=== PATIENT | female | born 1960 | race Caucasian/White ===

== ENCOUNTER → 2016-09-12 | Outpatient (CLI) | payer OTHER, BC ==
[~2016-09-12] MED LIST: ONDA4TAB11 PO
--- NOTE | 2016-09-12 18:25 | Diagnostic Imaging Report ---
Bilateral screening mammogram The current study was also evaluated with a Computer Aided Detection (CAD) system. Indication: Screening. No current complaints stated on the questionnaire. COMPARISON: 11/02/15. FINDINGS: The breasts are composed of scattered fibroglandular densities. There are occasional benign-appearing calcifications. Allowing for technique and positional differences, no suspicious change is seen. IMPRESSION: No significant change. ACR BI-RADS Category 2: Benign findings. Result letter will be mailed to the patient. Note: At least 10% of breast cancer is not imaged by mammography. Dictated by: Dictated on workstation # [id number]
== END ==
LOC: RAD 12:54
PROVIDERS: ATTEND Obstetrics & Gynecology
DX: Z12.31 Encounter for screening mammogram for malignant neoplasm of breast (principal)
CPT/HCPCS: 77067

== ENCOUNTER 2016-11-17 10:04 | Emergency (ER) | payer OTHER, BC ==
[~2016-11-17] VITALS: Ht 170.2 cm; Wt 93.0 kg
[2016-11-17] MEDS ORDERED: NS IV 1000 ML 1,000 ML IV ONE (10:22)
--- NOTE | 2016-11-17 10:33 | ED General ---
General Chief Complaint: Abdominal/GI Problems Stated Complaint: NAUSEA/DIARRHEA LOW BP Nursing Triage Note: PT CO OF FLU TYPE SX WEAKNESS, N/V SINCE LAST SUNDAY. PT HAS BEEN ON ZITROMAX SINCE SUNDAY Nursing Sepsis Screen: No Definite Risk Source of Information: Patient Exam Limitations: No Limitations History of Present Illness Time Seen by Provider: 10:16 Initial Comments Here with report of upper respiratory type symptoms including cough that have been going on for about a week and have improved some. She is now reporting nausea and weakness. She took her blood pressure today at work here and noted that she had a blood pressure in the 80s. She felt very weak at the time. She does report dizziness on standing. On arrival here she has normal to high blood pressure. Denies diarrhea. Denies shortness of breath. States that she has been drinking okay but not eating well because she does not have an appetite currently. Timing/Duration: 1 Week, Getting Worse Severity: Moderate Associated Systoms: Cough, No Fever/Chills, Nausea/Vomiting, No Shortness of Air, Weakness Allergies and Home Medications Allergies Coded Allergies: No Known Drug Allergies (Verified , 01/18/09) Home Medications Ondansetron 4 Mg Tab.rapdis, 4 MG PO Q6H PRN for NAUSEA/VOMITING, #8 Ref 0 Prescribed by: JANAE MCGREGOR on 11/17/16 1158 Constitutional: see HPI, No chills, No fever Respiratory: cough, No short of breath Cardiovascular: see HPI, No chest pain, No edema (still all the water comes down and there is), No palpitations, syncope (near syncope) Gastrointestinal: No abdominal pain, No diarrhea, nausea, No vomiting Genitourinary: no symptoms reported Musculoskeletal: no symptoms reported, No back pain, No muscle pain Skin: No lesions, No rash Psychiatric/Neurological: Denies Depressed, Denies Headache, Weakness Hematologic/Lymphatic: No Symptoms Reported All Other Systems Reviewed Negative Unless Noted: Yes Past Fjxnqio-Ztlcch-Rtnqlq Hx Patient Social History Alcohol Use: Denies Use Recreational Drug Use: No Smoking Status: Never a Smoker Recent Foreign Travel: No Contact w/Someone Who Travel: No Recent Infectious Disease Expo: No Recent Hopitalizations: No Surgeries HX Surgeries: Yes () Surgeries: Adenoidectomy, Appendectomy, Hysterectomy, Tonsillectomy Respiratory Hx Respiratory Disorders: No Cardiovascular Hx Cardiac Disorders: No Neurological Hx Neurological Disorders: No Reproductive System Hx Reproductive Disorders: Yes [employer] History: Hysterectomy Genitourinary Hx Genitourinary Disorders: No Gastrointestinal Hx Gastrointestinal Disorders: No Musculoskeletal Hx Musculoskeletal Disorders: No Endocrine Hx Endocrine Disorders: Yes Endocrine Disorders: Hypothyroidsim HEENT HX ENT Disorders: No Psychosocial Hx Psychiatric Problems: No Blood Transfusions Hx Blood Disorders: No Reviewed Nursing Assessment Reviewed/Agree w Nursing PMH: Yes Family Medical History Significant Family History: No Pertinent Family Hx Physical Exam Vital Signs Vital Sign - Last 12Hours 11/17/16 10:10 Temp 97.3 Pulse 80 Resp 18 B/P (MAP) 168/100 Pulse Ox 100 Capillary Refill : Less Than 3 Seconds General Appearance: No Apparent Distress, WD/WN HEENT: PERRL/EOMI, Pharynx Normal Neck: Non Tender, Supple Respiratory: Lungs Clear, Normal Breath Sounds Cardiovascular: Regular Rate, Rhythm, No Murmur Gastrointestinal: Non Tender, Soft Back: Normal Inspection, No CVA Tenderness, No Vertebral Tenderness Extremity: Non Tender, No Calf Tenderness Neurologic/Psychiatric: Alert, Oriented x3 Skin: Normal Color, Warm/Dry Progress/Results/Core Measures Results/Orders Lab Results Laboratory Tests Test 11/17/16 10:22 11/17/16 11:00 Range/Units White Blood Count 6.9 4.3-11.0 10^3/uL Red Blood Count 4.67 4.35-5.85 10^6/uL Hemoglobin 14.0 11.5-16.0 G/DL Hematocrit 42 35-52 % Mean Corpuscular Volume 89 80-99 FL Mean Corpuscular Hemoglobin 30 25-34 PG Mean Corpuscular Hemoglobin Concent 34 32-36 G/DL Red Cell Distribution Width 13.0 10.0-14.5 % Platelet Count 228 130-400 10^3/uL Mean Platelet Volume 9.5 7.4-10.4 FL Neutrophils (%) (Auto) 51 42-75 % Lymphocytes (%) (Auto) 41 12-44 % Monocytes (%) (Auto) 7 0-12 % Eosinophils (%) (Auto) 1 0-10 % Basophils (%) (Auto) 0 0-10 % Neutrophils # (Auto) 3.5 1.8-7.8 X 10^3 Lymphocytes # (Auto) 2.8 1.0-4.0 X 10^3 Monocytes # (Auto) 0.5 0.0-1.0 X 10^3 Eosinophils # (Auto) 0.1 0.0-0.3 10^3/uL Basophils # (Auto) 0.0 0.0-0.1 10^3/uL Sodium Level 139 135-145 MMOL/L Potassium Level 3.4 L 3.6-5.0 MMOL/L Chloride Level 103 98-107 MMOL/L Carbon Dioxide Level 24 21-32 MMOL/L Anion Gap 12 5-14 MMOL/L Blood Urea Nitrogen 15 7-18 MG/DL Creatinine 0.76 0.60-1.30 MG/DL Estimat Glomerular Filtration Rate > 60 BUN/Creatinine Ratio 20 Glucose Level 123 H 70-105 MG/DL Calcium Level 8.7 8.5-10.1 MG/DL Magnesium Level 1.8 1.8-2.4 MG/DL Total Bilirubin 0.6 0.1-1.0 MG/DL Aspartate Amino Transf (AST/SGOT) 22 5-34 U/L Alanine Aminotransferase (ALT/SGPT) 22 0-55 U/L Alkaline Phosphatase 81 40-136 U/L C-Reactive Protein High Sensitivity 0.32 0.00-0.50 MG/DL Total Protein 6.7 6.4-8.2 G/DL Albumin 3.9 3.2-4.5 G/DL Urine Color YELLOW Urine Clarity CLEAR Urine pH 7 5-9 Urine Specific [place] 1.005 L 1.016-1.022 Urine Protein NEGATIVE NEGATIVE Urine Glucose (UA) NEGATIVE NEGATIVE Urine Ketones NEGATIVE NEGATIVE Urine Nitrite NEGATIVE NEGATIVE Urine Bilirubin NEGATIVE NEGATIVE Urine Urobilinogen NORMAL NORMAL MG/DL Urine Leukocyte Esterase NEGATIVE NEGATIVE Urine RBC (Auto) NEGATIVE NEGATIVE Urine RBC NONE /HPF Urine WBC NONE /HPF Urine Squamous Epithelial Cells 5-10 /HPF Urine Crystals NONE /LPF Urine Bacteria NEGATIVE /HPF Urine Casts NONE /LPF Urine Mucus NEGATIVE /LPF Urine Culture Indicated NO My Orders Orders - JANAE MCGREGOR MD Saline Lock/Iv-Start (11/17/16 10:22) Ns Iv 1000 Ml (Sodium Chloride 0.9%) (11/17/16 10:22) Cbc With Automated Diff (11/17/16 10:22) Comprehensive Metabolic Panel (11/17/16 10:22) Hs C Reactive Protein (11/17/16 10:22) Magnesium (11/17/16 10:22) Ua Culture If Indicated (11/17/16 10:22) Chest Pa/Lat (2 View) (11/17/16 10:22) Ekg Tracing (11/17/16 10:22) Monitor-Rhythm Ecg Trace Only (11/17/16 10:22) Ondansetron Injection (Zofran Injectio (11/17/16 11:45) Famotidine Injection (Pepcid Injection) (11/17/16 11:42) Ondansetron Injection (Zofran Injectio (11/17/16 11:39) Famotidine Injection (Pepcid Injection) (11/17/16 11:39) Medications Given in ED Current Medications Medications Dose Ordered Sig/Kim Route Start Time Stop Time Status Last Admin Dose Admin Ondansetron HCl 4 mg ONCE ONCE IVP 11/17/16 11:45 11/17/16 11:46 DC 11/17/16 11:46 4 MG Sodium Chloride 1,000 ml @ 0 mls/hr Q0M ONCE IV 11/17/16 10:22 11/17/16 10:25 DC 11/17/16 10:38 999 MLS/HR Vital Signs/I&O Vital Sign - Last 12Hours 11/17/16 10:10 Temp 97.3 Pulse 80 Resp 18 B/P (MAP) 168/100 Pulse Ox 100 Blood Pressure Mean: 122 Progress Note : Progress Note Seen and evaluated. IV, labs, EKG, chest x-ray, UA, normal saline 1 L bolus ordered. Monitor patient. 1130: Improved but still feels nauseated. She had declined nausea medicine earlier but has accepted now. Pepcid 20 mg IV and Zofran 4 mg IV given. Monitor patient. 1230: Much improved. Not dizzy now and nausea resolved. Discharged home with return precautions. Patient verbalize understanding instructions and agreement with plan. ECG Initial ECG Impression Date: Nov 17, 2016 Initial ECG Impression Time: 10:28 Initial ECG Rate: 76 Initial ECG Rhythm: Normal Sinus Comment Sinus rhythm with normal axis. No evidence of ST elevation [place]. No previous available for comparison. Interpreted by me. Departure Impression Impression: Primary Impression: Nausea alone Additional Impression: Dehydration Disposition: 01 HOME, SELF-CARE Condition: Improved Departure-Patient Inst. Decision time for Depature: 11:56 Referrals: HOPE ORTIZ DO (PCP/Family) Primary Care Physician Patient Instructions: Dehydration, Adult (DC), Nausea and Vomiting, Adult Add. Discharge Instructions: All discharge instructions reviewed with patient and/or family. Voiced understanding. Take medications as directed. Clear liquid diet for 24 hours and then advance as tolerated. Drink plenty of fluids but taken small sips frequently. Follow- up with your Dr. in a few days for recheck. Return for worse pain, fever, vomiting, weakness, breathing problems or other concerns as needed. Scripts Ondansetron (Ondansetron Odt) 4 Mg Tab.rapdis 4 MG PO Q6H Y for NAUSEA/VOMITING, #8 TAB 0 Refills Prov: JANAE MCGREGOR MD 11/17/16 JANAE MCGREGOR MD Nov 17, 2016 10:33
[2016-11-17 10:39] LABS: BASOPHILS % (AUTO) 0 % (0-10); EOSINOPHILS # (AUTO) 0.1 10^3/uL (0.0-0.3); EOSINOPHILS % (AUTO) 1 % (0-10); LYMPHOCYTES # (AUTO) 2.8 X 10^3 (1.0-4.0); LYMPHOCYTES % (AUTO) 41 % (12-44); MEAN CORPUSCULAR HEMOGLOBIN 30 PG (25-34); MEAN CORPUSCULAR HGB CONC 34 G/DL (32-36); MEAN CORPUSCULAR VOLUME 89 FL (80-99); MEAN PLATELET VOLUME 9.5 FL (7.4-10.4); MONOCYTES # (AUTO) 0.5 X 10^3 (0.0-1.0); MONOCYTES % (AUTO) 7 % (0-12); NEUTROPHILS # (AUTO) 3.5 X 10^3 (1.8-7.8); NEUTROPHILS % (AUTO) 51 % (42-75); PLATELET COUNT 228 10^3/uL (130-400); RED BLOOD COUNT 4.67 10^6/uL (4.35-5.85); WHITE BLOOD COUNT 6.9 10^3/uL (4.3-11.0)
--- NOTE | 2016-11-17 11:01 | Diagnostic Imaging Report ---
PA and lateral views of the chest Indication: Nausea. Weakness. Cough. Findings: The lungs are clear. The heart size is normal. There is no effusion or pneumothorax The mediastinum and julinana appear unremarkable. Impression: Unremarkable study. Dictated by: Dictated on workstation # [id number]
[2016-11-17 11:03] LABS: ALANINE AMINOTRANSFERASE 22 U/L (0-55); ALBUMIN 3.9 G/DL (3.2-4.5); ANION GAP 12 MMOL/L (5-14); ASPARTATE AMINO TRANSFERASE 22 U/L (5-34); BILIRUBIN,TOTAL 0.6 MG/DL (0.1-1.0); BLOOD UREA NITROGEN 15 MG/DL (7-18); BUN/CREATININE RATIO 20; CALCIUM 8.7 MG/DL (8.5-10.1); CARBON DIOXIDE 24 MMOL/L (21-32); CHLORIDE 103 MMOL/L (98-107); CREATININE SERUM 0.76 MG/DL (0.60-1.30); GFR ESTIMATED > 60; GLUCOSE 123 MG/DL (70-105); MAGNESIUM 1.8 MG/DL (1.8-2.4); POTASSIUM 3.4 MMOL/L (3.6-5.0); SODIUM 139 MMOL/L (135-145); TOTAL PROTEIN 6.7 G/DL (6.4-8.2); hs C REACTIVE PROTEIN 0.32 MG/DL (0.00-0.50)
[2016-11-17 11:13] LABS: BILIRUBIN,URINE NEGATIVE (NEGATIVE); KETONES,URINE NEGATIVE (NEGATIVE); LEUKOCYTE ESTERASE ,URINE NEGATIVE (NEGATIVE); NITRITE,URINE NEGATIVE (NEGATIVE); PH,URINE 7 (5-9); PROTEIN,URINE NEGATIVE (NEGATIVE); UROBILINOGEN,URINE NORMAL (NORMAL)
[2016-11-17] MEDS ORDERED: ONDANSETRON 4 MG/2 ML (SDV) Z0FRAN ONE (11:39)
[2016-11-17] MEDS ORDERED: FAMOTIDINE 20MG/2ML IV (PEPCID) ONE (11:39)
[2016-11-17] MEDS ORDERED: FAMOTIDINE 20MG/2ML IV (PEPCID) IV STA (11:42)
[2016-11-17] MEDS ORDERED: ONDANSETRON 4 MG/2 ML (SDV) Z0FRAN IVP ONE (11:45)
[2016-11-17] MEDS ORDERED: ONDA4TAB11 PO (11:58)
[2016-11-17 12:35] VITALS: BP 111/65
== END 2016-11-17 12:36 | disposition home or self-care (01) ==
LOC: EDUNIT# 10:04 → ER 10:06
DX: R11.0 Nausea (principal); E86.0 Dehydration
CPT/HCPCS: 36415; 71020; 80053; 81000; 83735; 85025; 86141; 93041; 96361; 96374; 96375

== ENCOUNTER → 2017-01-03 | Outpatient (CLI) | payer OTHER, BC ==
[2017-01-03 07:52] LABS: BASOPHILS % (AUTO) 1 % (0-10); EOSINOPHILS # (AUTO) 0.1 10^3/uL (0.0-0.3); EOSINOPHILS % (AUTO) 3 % (0-10); LYMPHOCYTES # (AUTO) 1.9 X 10^3 (1.0-4.0); LYMPHOCYTES % (AUTO) 39 % (12-44); MEAN CORPUSCULAR HEMOGLOBIN 30 PG (25-34); MEAN CORPUSCULAR HGB CONC 33 G/DL (32-36); MEAN CORPUSCULAR VOLUME 92 FL (80-99); MEAN PLATELET VOLUME 9.3 FL (7.4-10.4); MONOCYTES # (AUTO) 0.3 X 10^3 (0.0-1.0); MONOCYTES % (AUTO) 7 % (0-12); NEUTROPHILS # (AUTO) 2.5 X 10^3 (1.8-7.8); NEUTROPHILS % (AUTO) 50 % (42-75); PLATELET COUNT 248 10^3/uL (130-400); RED BLOOD COUNT 4.42 10^6/uL (4.35-5.85); RED CELL DISTRIBUTION WIDTH 13.1 % (10.0-14.5); WHITE BLOOD COUNT 4.9 10^3/uL (4.3-11.0)
[2017-01-03 08:16] LABS: ALANINE AMINOTRANSFERASE 14 U/L (0-55); ALBUMIN 3.8 G/DL (3.2-4.5); ANION GAP 8 MMOL/L (5-14); ASPARTATE AMINO TRANSFERASE 18 U/L (5-34); BILIRUBIN,TOTAL 0.4 MG/DL (0.1-1.0); BLOOD UREA NITROGEN 16 MG/DL (7-18); BUN/CREATININE RATIO 22; CALCIUM 9.3 MG/DL (8.5-10.1); CARBON DIOXIDE 27 MMOL/L (21-32); CHLORIDE 104 MMOL/L (98-107); CHOLESTEROL 233 MG/DL (< 200); CREATININE SERUM 0.73 MG/DL (0.60-1.30); DIRECT LDL 133 MG/DL (1-129); GFR ESTIMATED > 60; GLUCOSE 88 MG/DL (70-105); POTASSIUM 3.9 MMOL/L (3.6-5.0); SODIUM 139 MMOL/L (135-145); TOTAL PROTEIN 6.6 G/DL (6.4-8.2); TRIGLYCERIDES 168 MG/DL (<150); VLDL CHOLESTEROL 34 MG/DL (5-40)
[2017-01-03 08:37] LABS: THYROID STIMULATING HORMONE 0.75 UIU/ML (0.35-4.94)
== END ==
LOC: LAB 07:40
PROVIDERS: ATTEND Nurse Practitioner
DX: Z00.00 Encounter for general adult medical examination without abnormal findings (principal); E03.9 Hypothyroidism, unspecified
CPT/HCPCS: 36415; 80053; 80061; 84439; 84443; 85025

== ENCOUNTER → 2017-09-17 | Outpatient (CLI) | payer OTHER, BC ==
--- NOTE | 2017-09-17 20:37 | Diagnostic Imaging Report ---
INDICATION: Routine screening. Comparison is made with prior exam from 09/12/2016 and 11/02/2015. The current study was also evaluated with a Computer Aided Detection (CAD) system. Both breasts are primarily involutional. Intramammary lymph node in the upper-outer right breast is stable. No spiculated mass or malignant appearing microcalcifications are seen. The axillae are unremarkable. IMPRESSION: No mammographic features suspicious for malignancy are identified. ACR BI-RADS Category 2: Benign findings. Result letter will be mailed to the patient. Note: At least 10% of breast cancer is not imaged by mammography. Dictated by: Dictated on workstation # [id number]
== END ==
LOC: RAD 15:15
PROVIDERS: ATTEND Obstetrics & Gynecology
DX: Z12.31 Encounter for screening mammogram for malignant neoplasm of breast (principal)
CPT/HCPCS: 77067

== ENCOUNTER → 2017-11-23 | Outpatient (CLI) | payer OTHER, BC ==
[2017-11-23 07:58] LABS: ALANINE AMINOTRANSFERASE 13 U/L (0-55); ALBUMIN 3.8 GM/DL (3.2-4.5); ALKALINE PHOSPHATASE 65 U/L (40-136); BILIRUBIN,TOTAL 0.6 MG/DL (0.1-1.0); BUN/CREATININE RATIO 16; CARBON DIOXIDE 28 MMOL/L (21-32); CHLORIDE 101 MMOL/L (98-107); CHOLESTEROL 246 MG/DL (< 200); GFR ESTIMATED > 60; GLUCOSE 85 MG/DL (70-105); HDL CHOLESTEROL 65 MG/DL (40-60); POTASSIUM 3.8 MMOL/L (3.6-5.0); SODIUM 138 MMOL/L (135-145); TOTAL PROTEIN 6.6 GM/DL (6.4-8.2); TRIGLYCERIDES 257 MG/DL (<150); VLDL CHOLESTEROL 51 MG/DL (5-40)
== END ==
LOC: LAB 07:26
PROVIDERS: ATTEND Family Medicine
DX: E03.9 Hypothyroidism, unspecified (principal); N95.9 Unspecified menopausal and perimenopausal disorder; M19.90 Unspecified osteoarthritis, unspecified site
CPT/HCPCS: 36415; 80053; 80061; 84443

== ENCOUNTER → 2018-07-18 | Outpatient (CLI) | payer OTHER, BC ==
[~2018-07-18] MED LIST changes: +CATHETER FLUSH 10 ML SYR IV PRN; +IOHEXOL 350 MG/ML 100 ML (OMNIPAQUE 350) VIAL IV ONE; +RECEIVED CONTRAST (Hold Metformin) IV SCH
--- NOTE | 2018-07-18 15:31 | Diagnostic Imaging Report ---
PROCEDURE: CT head with and without contrast. TECHNIQUE: Multiple contiguous axial images were obtained through the brain before and after the administration of intravenous contrast. INDICATION: Dizziness and heart palpitations as well as dull headaches. No prior studies are available for comparison. Ventricles and sulci are within normal limits. No sulcal effacement, midline shift or hemorrhage is detected. Cisterns are patent. There is a paranasal sinuses demonstrates minimal fluid in the left maxillary sinus. Postcontrast imaging through the brain is without abnormal enhancement. IMPRESSION: Unremarkable pre-and postcontrast CT of the brain. Dictated by: Dictated on workstation # [id number]
== END ==
LOC: RAD 14:53
PROVIDERS: ATTEND Family Medicine
DX: R42 Dizziness and giddiness (principal); R00.2 Palpitations
CPT/HCPCS: 70470

== ENCOUNTER → 2018-10-08 | Outpatient (CLI) | payer OTHER, BC ==
[~2018-10-08] MED LIST changes: -CATHETER FLUSH 10 ML SYR IV PRN; -IOHEXOL 350 MG/ML 100 ML (OMNIPAQUE 350) VIAL IV ONE; -RECEIVED CONTRAST (Hold Metformin) IV SCH
--- NOTE | 2018-10-08 22:01 | Diagnostic Imaging Report ---
INDICATION: Routine screening. Comparison is made with prior mammograms from 09/17/2017 and 09/12/2016. 2-D and 3-D bilateral screening mammography was performed with Computer-Aided Detection (CAD) system. FINDINGS: Scattered fibroglandular densities are identified bilaterally. Intraparenchymal lymph node upper-outer right breast is stable. No mass or malignant-appearing microcalcifications are seen. The axillae are unremarkable. IMPRESSION: No mammographic features suspicious for malignancy are identified. ACR BI-RADS Category 1: Negative. Result letter will be mailed to the patient. Note: At least 10% of breast cancer is not imaged by mammography. Dictated by: Dictated on workstation # [id number]
== END ==
LOC: RAD 07:38
PROVIDERS: ATTEND Obstetrics & Gynecology
DX: Z12.31 Encounter for screening mammogram for malignant neoplasm of breast (principal)
CPT/HCPCS: 77067

== ENCOUNTER → 2019-11-05 | Outpatient (CLI) | payer OTHER, BC ==
[2019-11-05 08:04] LABS: BASOPHILS % (AUTO) 1 % (0-10); EOSINOPHILS # (AUTO) 0.1 10^3/uL (0.0-0.3); EOSINOPHILS % (AUTO) 2 % (0-10); HEMATOCRIT 42 % (35-52); HEMOGLOBIN 13.8 G/DL (11.5-16.0); LYMPHOCYTES # (AUTO) 2.2 X 10^3 (1.0-4.0); LYMPHOCYTES % (AUTO) 40 % (12-44); MEAN CORPUSCULAR HEMOGLOBIN 30 PG (25-34); MEAN CORPUSCULAR HGB CONC 33 G/DL (32-36); MEAN CORPUSCULAR VOLUME 91 FL (80-99); MEAN PLATELET VOLUME 8.9 FL (7.4-10.4); MONOCYTES # (AUTO) 0.4 X 10^3 (0.0-1.0); MONOCYTES % (AUTO) 8 % (0-12); NEUTROPHILS # (AUTO) 2.7 X 10^3 (1.8-7.8); NEUTROPHILS % (AUTO) 49 % (42-75); PLATELET COUNT 269 10^3/uL (130-400); RED CELL DISTRIBUTION WIDTH 13.6 % (10.0-14.5); WHITE BLOOD COUNT 5.4 10^3/uL (4.3-11.0)
== END ==
LOC: LAB 07:45
PROVIDERS: ATTEND Family Medicine
DX: Z00.00 Encounter for general adult medical examination without abnormal findings (principal)
CPT/HCPCS: 36415; 80061; 83036; 84443; 85025

== ENCOUNTER → 2019-12-01 | Outpatient (CLI) | payer OTHER, BC ==
--- NOTE | 2019-12-01 12:38 | Diagnostic Imaging Report ---
INDICATION: Digital screening with CAD. COMPARISON: 10/09/2018 and 09/18/2017. FINDINGS: The parenchymal pattern is predominantly fatty, unchanged. No dominant mass, spiculated lesion, architectural distortion, or suspicious calcifications. IMPRESSION: Stable negative mammograms. ACR BI-RADS Category 1: Negative. Result letter will be mailed to the patient. Note: At least 10% of breast cancer is not imaged by mammography. Dictated by: Dictated on workstation # [id number]
== END ==
LOC: RAD 07:26
PROVIDERS: ATTEND Family Medicine
DX: Z12.31 Encounter for screening mammogram for malignant neoplasm of breast (principal)
CPT/HCPCS: 77063; 77067

== ENCOUNTER → 2019-12-30 | Outpatient (CLI) | payer OTHER, BC ==
--- NOTE | 2019-12-30 14:48 | Diagnostic Imaging Report ---
INDICATION: Screening for osteoporosis COMPARISON: None FINDINGS: The bone density of hips and spine was measured. The T score for the spine is -0.8. The total T score for the left hip is 1.4 and for the right hip is 0.1. The T score for the left femoral neck is 0.0 and for the right femoral neck is -0.9. All of these values are within normal limits. AP Spine L1-L4: [BMD (g/cm2): 1.109] [T-Score: -0.8] [Z-Score: -0.7] [BMD Previous: na] [BMD % Change: na] LT Hip Neck: [BMD (g/cm2): 1.039] [T-Score: 0.0] [Z-Score: 0.5] LT Hip Total: [BMD (g/cm2):1.179] [T-Score:1.4] [Z-Score: 1.4] [BMD Previous: na] [BMD % Change: na] RT Hip Neck: [BMD (g/cm2):0.918] [T-Score:-0.9] [Z-Score:-0.4] RT Hip Total: [BMD (g/cm2):1.025] [T-score:0.1] [Z-Score:0.2] [BMD Previous:na] [BMD % Change:na] *Indicates significant change from prior examination based on 95% confidence level. World Health Organization criteria for BMD interpretation classify patients as Normal (T-score at or above -1.0), Osteopenic (T-score between -1.0 and -2.5) or Osteoporotic (T-score at or below -2.5). LIMITATIONS AND MODIFICATION: None. FRACTURE RISK (FRAX SCORE): The ten year probability of (%): Major Osteoporotic Fracture: [na] Hip Fracture: [na] IMPRESSION: 1. The bone mineral density of the hips and spine is within normal limits. 2. 3. See below National Osteoporosis Foundation guidelines on when to potentially initiate pharmacologic therapy. Based on the National Osteoporosis Foundation Guidelines, pharmacologic treatment should be initiated in any of the following, unless clinical conditions suggest otherwise: * Any patient with prior fragility fracture of the hip or vertebrae. A spine fracture indicates 5X risk for subsequent spine fracture and 2X risk for subsequent hip fracture. * Osteoporosis (T-score <-2.5). * Postmenopausal women and men age 50 and older with low bone mass/osteopenia (T-score between -1.0 and -2.5) by DXA and 10-year major osteoporotic fracture greater than 20% or a 10-year probability of hip fracture greater than 3%. These fracture risks are supplied above in the FRAX score, if applicable. * Clinician judgement and/or patient preferences may indicate treatment for people with 10-year fracture probabilities above or below these levels. Dictated by: Dictated on workstation # [id number]
== END ==
LOC: RAD 13:31
DX: Z13.820 Encounter for screening for osteoporosis (principal); M54.42 Lumbago with sciatica, left side; M54.16 Radiculopathy, lumbar region; G89.29 Other chronic pain; R53.1 Weakness
CPT/HCPCS: 77080

== ENCOUNTER 2020-03-24 15:27 | Outpatient (RCR) | payer OTHER, BC | END 2020-05-30 | disposition home or self-care (01) | PROVIDERS: ATTEND Physical Medicine & Rehabilitation | DX: M54.5 Low back pain (principal); M54.2 Cervicalgia ==

== ENCOUNTER → 2021-03-02 | Outpatient (CLI) | payer BC, OTHER ==
[2021-03-02 11:01] LABS: BASOPHILS % (AUTO) 1 % (0-10); EOSINOPHILS # (AUTO) 0.1 10^3/uL (0.0-0.3); EOSINOPHILS % (AUTO) 2 % (0-10); HEMATOCRIT 43 % (35-52); HEMOGLOBIN 14.1 g/dL (11.5-16.0); LYMPHOCYTES # (AUTO) 2.3 10^3/uL (1.0-4.0); LYMPHOCYTES % (AUTO) 44 % (12-44); MEAN CORPUSCULAR HEMOGLOBIN 30 pg (25-34); MEAN CORPUSCULAR HGB CONC 33 g/dL (32-36); MEAN CORPUSCULAR VOLUME 92 fL (80-99); MEAN PLATELET VOLUME 9.1 fL (9.0-12.2); MONOCYTES # (AUTO) 0.3 10^3/uL (0.0-1.0); MONOCYTES % (AUTO) 7 % (0-12); NEUTROPHILS # (AUTO) 2.4 10^3/uL (1.8-7.8); NEUTROPHILS % (AUTO) 46 % (42-75); PLATELET COUNT 271 10^3/uL (130-400); WHITE BLOOD COUNT 5.3 10^3/uL (4.3-11.0)
[2021-03-02 11:16] LABS: INR 0.9 (0.8-1.4); PROTHROMBIN TIME PATIENT 12.8 SEC (12.2-14.7)
[2021-03-02 11:21] LABS: CREATININE SERUM 0.72 MG/DL (0.60-1.30); POTASSIUM 3.7 MMOL/L (3.6-5.0)
[2021-03-02 11:56] LABS: BILIRUBIN,URINE NEGATIVE (NEGATIVE); CLARITY,URINE CLEAR; COLOR,URINE YELLOW; GLUCOSE, URINE (UA) NEGATIVE (NEGATIVE); KETONES,URINE 1+ (NEGATIVE); LEUKOCYTE ESTERASE ,URINE NEGATIVE (NEGATIVE); NITRITE,URINE NEGATIVE (NEGATIVE); PROTEIN,URINE NEGATIVE (NEGATIVE)
[2021-03-02 12:05] LABS: BACTERIA,URINE NEGATIVE /HPF
== END ==
LOC: CARD 10:30
DX: Z01.810 Encounter for preprocedural cardiovascular examination (principal); M17.11 Unilateral primary osteoarthritis, right knee
CPT/HCPCS: 36415; 80048; 81000; 85025; 85610; 87081; 93005